=== PATIENT | male | born 1985 | race Caucasian/White ===

== ENCOUNTER → 2025-04-29 16:00 | Outpatient (CLI) | payer OTHER, SELFPAY ==
--- NOTE | 2025-04-29 | DI.MRI.S_ITS ---
PROCEDURE: MR SHOULDER RT WO CON INDICATIONS: shoulder and wrist pain TECHNIQUE: Noncontrast oblique coronal T2 fast spin echo with fat saturation, oblique sagittal T1 spin echo and T2 fast spin echo with fat saturation, axial T1 spin echo and T2 fast spin echo with fat saturation through the shoulder. COMPARISON: None. FINDINGS: Image quality: Excellent. Rotator cuff: Mild supraspinatus tendinosis. The infraspinatus, teres minor, and subscapularis tendons are intact. The rotator cuff musculature is well- developed. Mild edema within the posterior belly of the deltoid muscle and the superior portion of the long head of the triceps muscle. Bones and bursae: No acute trabecular bone injury or fracture. Small chronic traction cystic changes at the posterior superior humeral head. No focal glenohumeral cartilage defect. Mild degenerative changes at the acromioclavicular joint. Trace fluid in the subacromial/subdeltoid bursa. No significant glenohumeral effusion. Capsule and soft tissues: Nondisplaced tearing of the superior labrum extending into the anterior superior and posterior labrum. A posterior superior paralabral cyst measures up to 6 mm. Proximal biceps long head tendon demonstrates mild tendinosis. There is mild partial effacement of fat signal in the rotator interval. Anterior band of the inferior glenohumeral ligament is mildly thickened. IMPRESSION: 1. Nondisplaced tearing of the superior labrum from anterior superior to posterior. A posterior superior paralabral cyst measures up to 6 mm. 2. Mild proximal biceps long head tendinosis. 3. Mild supraspinatus tendinosis. No significant rotator cuff tendon tearing. 4. Mild edema in the posterior belly of the deltoid muscle and in the included long head of the triceps muscle is suspicious for low-grade muscle strains. 5. Mild acromioclavicular joint osteoarthrosis. 6. Partial effacement of the rotator interval fat and mild thickening of the inferior glenohumeral ligament are nonspecific, but can be seen in the setting of the clinical syndrome of adhesive capsulitis. Approved by: Osmani Forbes M.D. on 04/29/2025 at 18:43
--- NOTE | 2025-04-29 | DI.MRI.S_ITS ---
PROCEDURE: MR WRIST RT WO CON INDICATIONS: shoulder and wrist pain TECHNIQUE: Noncontrast coronal proton density fast spin echo and T2 fast spin echo with fat saturation; coronal 3-D gradient echo, axial T1 spin echo and T2 fast spin echo with fat saturation, sagittal T1 spin echo through the wrist. COMPARISON: None. FINDINGS: Image quality: Excellent. Bones and cartilage: Mild subchondral cystic changes at the 4th metacarpal head, favoring degenerative. No marrow edema Joint spaces are grossly well maintained. Carpal ligaments: The scapholunate and lunotriquetral ligaments appear intact. In the absence of intra-articular contrast, the extrinsic carpal ligaments are not well identified. On sagittal images, the pisohamate ligament appears intact. Triangular fibrocartilage complex: The triangular fibrocartilage appears intact. The adjacent meniscal homolog appears normal in the absence of intra-articular contrast. The extensor carpi ulnaris tendon is normal in location and morphology. Tendons and soft tissues: The carpal tunnel structures appear normal, including the median nerve. The ulnar nerve appears normal within Guyon's canal. Longitudinal split tear with trace tenosynovitis of the extensor carpi ulnaris, within the ulnar groove (08:22). 4 mm ganglion cyst immediately volar to the 3rd metacarpal base (8:9). IMPRESSION: 1. Longitudinal split tear with trace tenosynovitis of the extensor carpi ulnaris, within the ulnar groove. 2. 4 mm ganglion cyst volar to the 3rd metacarpal base. Dictated by: Mary Escalante M.D. on 04/29/2025 at 17:37 Approved by: Mary Escalante M.D. on 04/29/2025 at 17:44
== END ==
DX: M25.539 Pain in unspecified wrist (principal); M25.511 Pain in right shoulder; M65.931 Unspecified synovitis and tenosynovitis, right forearm; M67.431 Ganglion, right wrist; S66.811A Strain of other specified muscles, fascia and tendons at wrist and hand level, right hand, initial encounter; S43.431A Superior glenoid labrum lesion of right shoulder, initial encounter; M25.811 Other specified joint disorders, right shoulder; M25.411 Effusion, right shoulder; M19.011 Primary osteoarthritis, right shoulder
CPT/HCPCS: 73221